=== PATIENT | female | born 1965 | race Caucasian/White ===

== ENCOUNTER 2020-09-18 06:32 | Day surgery (SDC) | payer OTHER, SELFPAY ==
[~2020-09-18] VITALS: Ht 154.9 cm; Wt 45.4 kg
[2020-09-18] MEDS ORDERED: fentaNYL citrate 0.05 MG/ML VIAL ONE (07:54)
[2020-09-18] MEDS ORDERED: MIDAZOLAM 2 MG/2 ML VIAL ONE (07:54)
[2020-09-18] MEDS ORDERED: LIDOCAINE 2% 100 MG/5 ML UJET TP ONE ×2 (07:54→10:05)
[2020-09-18] MEDS ORDERED: diphenhydrAMINE 50 MG/ML VIAL ONE (08:12)
[2020-09-18] MEDS ORDERED: MIDAZOLAM 2 MG/2 ML VIAL IVP ONE (10:05)
[2020-09-18] MEDS ORDERED: fentaNYL citrate 0.05 MG/ML VIAL IVP ONE (10:05)
== END 2020-09-18 10:18 | disposition home or self-care (01) ==
LOC: MDS 06:32 → MMU 06:33 → MDS 10:18
PROVIDERS: ATTEND Internal Medicine Gastroenterology
DX: Z12.11 Encounter for screening for malignant neoplasm of colon (principal); K63.5 Polyp of colon; Z20.828 Contact with and (suspected) exposure to other viral communicable diseases
CPT/HCPCS: 45380; 45385; 88305; J2250; J3010; U0003; J1200